=== PATIENT | female | born 1950 | race Caucasian/White ===

== ENCOUNTER 2019-01-01 10:36 | Outpatient (CLI) | payer MEDICARE ==
[~2019-01-01 10:36] MED LIST: Iopamidol 370 76% 125 ML VIAL FS ONE
--- NOTE | 2019-01-01 15:46 | CT ---
CT NECK WITHOUT CONTRAST: CT NECK WITH CONTRAST: HISTORY: Parathyroid adenoma. COMPARISON: Parathyroid SPECT scan from 12/23/2018. TECHNIQUE: CT neck performed prior to and after the intravenous administration of contrast. FINDINGS: The ascending aorta measures 3.9 cm in size. The transverse dimension of the pulmonary trunk is 31 m m, abnormally dilated. There is increased AP dimension of the chest. No acute fracture or malalignment of the cervical spin e. Mild spondylosis. Corresponding to the recent SPECT CT is a mass posterior to the right thyroid, measuring 1.2 cm trans verse x 1.3 cm AP dimension x a craniocaudad length of 17 mm. There is a bilobed mass posterior to t he left lobe of the thyroid, measuring 10 mm transverse x 6 mm AP dimension x 1 craniocaudad length o f 13 mm. These masses have attenuation that is lower than the thyroid on the precontrast, lower than the thyroid on the post contrast arterial phase, and lower than the thyroid on the venous phase. Th is is type B kinetics. IMPRESSION: Findings suggestive of parathyroid hyperplasia, corresponding to the recent scintigraphic examination . POS: [facility]
== END 2019-01-01 10:37 | disposition home or self-care (01) ==
LOC: NAV CT 10:36
PROVIDERS: ATTEND Internal Medicine
DX: Z01.812 Encounter for preprocedural laboratory examination (principal); D35.1 Benign neoplasm of parathyroid gland; R94.4 Abnormal results of kidney function studies
CPT/HCPCS: 36415; 70492; 82565; Q9967

== ENCOUNTER 2020-04-15 17:24 | Emergency (ER) | payer MEDICARE ==
[2020-04-15] MEDS ORDERED: Sodium Chloride 0.9% 500 ML ONE (18:02)
[2020-04-15] MEDS ORDERED: methylPREDNISolone Sod Succ/PF 125 MG/2 ML VIAL ONE (18:04)
[2020-04-15 18:14] LABS: #Basophils 0.1 thou/uL (0.0-0.2); #Eosinphils 0.5 thou/uL (0.0-0.7); #Lymphocytes 1.5 thou/uL (1.20-3.40); #Monocytes 0.5 thou/uL (0.11-0.59); #Neutrophils 3.7 thou/uL (1.40-6.50); %Eosinophils 7.6 % (0.0-10.0); %Lymphocytes 24.4 % (21.0-51.0); %Monocytes 7.4 % (0.0-10.0); %Neutrophils 59.5 % (42.0-75.0); Hemoglobin 11.4 g/dL (12.0-16.0); Mean Corpuscular HGB CONC 29.6 g/dL (32.0-36.0); Mean Corpuscular Hemoglobin 28.1 pg (27.0-31.0); Mean Platelet Volume 6.9 fL (7.4-10.4); Platelet Count 228 thou/uL (130-400); RBC Distribution Width 13.2 % (11.5-14.5); Red Blood Cell (RBC) Count 4.06 mill/uL (4.20-5.40); White Blood Cell (WBC) Count 6.3 thou/uL (4.8-10.8)
[2020-04-15 18:29] LABS: ALT (SGPT) 10 U/L (8-55); AST (SGOT) 15 U/L (5-34); Albumin 3.6 g/dL (3.4-4.8); Alkaline Phosphatase 251 U/L (40-110); Anion Gap 13 mmol/L (10-20); BUN (Urea Nitrogen) 15 mg/dL (9.8-20.1); Bilirubin, Total 0.2 mg/dL (0.2-1.2); Calc. Creatinine Clearance 0 mL/min (70-130); Calcium 8.2 mg/dL (7.8-10.44); Carbon Dioxide 21 mmol/L (23-31); Chloride 108 mmol/L (98-107); Estimated GFR-MDRD 64; Globulin 2.9 g/dL (2.4-3.5); Glucose 88 mg/dL (83-110); Potassium 4.3 mmol/L (3.5-5.1); Protein, Total 6.5 g/dL (6.0-8.3); Sodium 138 mmol/L (136-145)
--- NOTE | 2020-04-15 18:30 | RAD ---
EXAM: CHEST ONE VIEW HISTORY: Cough. COMPARISON: 04/02/2020 FINDINGS: Cardiac silhouette is magnified by projection. Pulmonary vasculature is within normal limits. There i s mild prominence of the perihilar interstitial densities predominantly in the upper lung zones which may be accentuated by the technique of the exam. No consolidation or pleural fluid is seen. Haider ateral glenohumeral osteoarthropathy is present with mild right convex curvature of the thoracic spine. Degenerative changes are seen in the spine IMPRESSION: Mild prominence of perihilar interstitial densities primarily in the upper lung zones. This is likely related to technique of the exam and accentuation of the perihilar interstitial densities, but a follow-up PA and lateral chest x-ray is recommended.
[2020-04-15] MEDS ORDERED: Albuterol Sulfate 2.5 mg/0.5 ml Neb ONE (18:51)
== END 2020-04-15 19:54 | disposition home or self-care (01) ==
LOC: NAV ERS 17:24
DX: J45.901 Unspecified asthma with (acute) exacerbation (principal); E86.0 Dehydration; E21.3 Hyperparathyroidism, unspecified; F41.9 Anxiety disorder, unspecified; F32.9 Major depressive disorder, single episode, unspecified; Z79.899 Other long term (current) drug therapy; Z79.51 Long term (current) use of inhaled steroids
CPT/HCPCS: 71045; 80053; 83605; 83880; 84484; 85025; 93005; 96361; 96374; J2930; J7030; J7611; J7620